=== PATIENT | female | born 1935 | race Caucasian/White ===

== ENCOUNTER 2017-11-04 11:27 | Emergency (ER) | payer MEDICARE ==
[~2017-11-04] VITALS: Ht 167.6 cm; Wt 127.9 kg
[~2017-11-04 11:27] MED LIST: CARVEDILOL25 MG PO; CO Q-10200 MG PO; FUROSEMIDE80 MG PO; LISINOPRIL40 MG PO; MULTI-VITAMIN1 EACH PO
[2017-11-04 12:20] LABS: BASOPHILS % 0.2 % (0.0-1.0); EOSINOPHILS # (AUTO) 0.2 (0.0-0.4); EOSINOPHILS % 1.9 % (0.0-6.0); HEMATOCRIT 29.2 % (34.2-44.1); HEMOGLOBIN 9.1 g/dL (12.0-16.0); LYMPHOCYTES # (AUTO) 1.6 (1.0-3.2); LYMPHOCYTES % 12.7 % (18.0-39.1); MEAN CORPUSCULAR HGB CONC 31.2 g/dL (31-35); MONOCYTES # (AUTO) 0.8 (0.2-0.8); MONOCYTES % 6.4 % (4.4-11.3); NEUTROPHILS # (AUTO) 9.6 (2.1-6.9); NEUTROPHILS % 77.8 % (38.7-80.0); PLATELET COUNT 240 x10e3/uL (140-360); RED BLOOD COUNT 3.14 x10e6/uL (3.6-5.1); RED CELL DISTRIBUTION WIDTH 15.9 % (11.7-14.4)
[2017-11-04 12:32] LABS: INR 1.15; PARTIAL THROMBOPLASTIN TIME 30.8 seconds (23.8-35.5); PROTHROMBIN TIME 13.8 seconds (11.9-14.5)
[2017-11-04 12:39] LABS: ALBUMIN 2.7 g/dL (3.5-5.0); ALBUMIN/GLOBULIN RATIO 0.6 (0.8-2.0); ANION GAP 9.7 mmol/L (8-16); CALCIUM 9.4 mg/dL (8.4-10.2); CREATININE, SERUM 0.91 mg/dL (0.57-1.11); POTASSIUM 4.7 mmol/L (3.5-5.1)
[2017-11-04] MEDS ORDERED: MORPHINE SULFATE 2 MG/ML SYR IV STA ×3 (12:46→14:55)
[2017-11-04] MEDS ORDERED: MORPHINE SULFATE 2 MG/ML SYR ONE (12:54)
[2017-11-04] MEDS ORDERED: MORPHINE SULFATE 2 MG/ML SYR IV SCH (13:00)
--- NOTE | 2017-11-04 13:41 | Diagnostic Imaging Report ---
PROCEDURE:SHOULDER LEFT COMPLETE TECHNIQUE:Portable AP left shoulder internal and external rotation. INDICATION:Left shoulder pain status post fall COMPARISON:None. FINDINGS: See conclusion. CONCLUSION: Anterior dislocation with suspected Hill-Sachs fracture. Fracture fragments at the posterolateral margin of the glenoid. Dictated by: Isaias Alvarez M.D. on 11/04/2017 at 13:41 Electronically approved by: Isaias Alvarez M.D. on 11/04/2017 at 13:41
--- NOTE | 2017-11-04 14:27 | Diagnostic Imaging Report ---
PROCEDURE:X-RAY LEFT SHOULDER, COMPLETE COMPARISON:[facility], DX, SHOULDER LEFT COMPLETE, 11/04/2017, 13:32. INDICATIONS:POST REDUCTION OF LEFT SHOULDER FINDINGS: See conclusion. CONCLUSION: Persistent subcoracoid location of the left humeral head, consistent with anterior glenohumeral dislocation. Multiple bone fragments again project lateral to the humeral head, consistent with Hill-Sachs fracture Micky Gibson M.D. Dictated by: Micky Gibson M.D. on 11/04/2017 at 14:28 Electronically approved by: Micky Gibson M.D. on 11/04/2017 at 14:28
--- NOTE | 2017-11-04 14:28 | Diagnostic Imaging Report ---
PROCEDURE:X-RAY LEFT HUMERUS, TWO OR MORE VIEWS COMPARISON:None. INDICATIONS:POST REDUCTION OF LEFT SHOULDER FINDINGS: See conclusion. CONCLUSION: No significant interval change in the subcoracoid location of the left humeral head consistent with glenohumeral dislocation. Bone fragments projecting lateral to the humeral neck consistent with Hill-Sachs fracture. Other bony structures are intact. Micky Gibson M.D. Dictated by: Micky Gibson M.D. on 11/04/2017 at 14:29 Electronically approved by: Micky Gibson M.D. on 11/04/2017 at 14:29
[2017-11-04] MEDS ORDERED: MORPHINE SULFATE 2 MG/ML SYR IV NR (16:30)
[2017-11-04] MEDS ORDERED: MORPHINE SULFATE 4 MG/ML SYR IV ONE (16:30)
--- NOTE | 2017-11-04 16:39 | Diagnostic Imaging Report ---
PROCEDURE:X-RAY LEFT SHOULDER, LIMITED COMPARISON:None. INDICATIONS:POST REDUCTION LEFT SHOULDER DISLOCATION FINDINGS: See conclusion. CONCLUSION: 1. Persistent left glenohumeral dislocation and Hill-Sachs fracture. Micky Gibson M.D. Dictated by: Micky Gibson M.D. on 11/04/2017 at 16:40 Electronically approved by: Micky Gibson M.D. on 11/04/2017 at 16:40
--- NOTE | 2017-11-04 17:12 | Diagnostic Imaging Report ---
PROCEDURE:X-RAY LEFT SHOULDER, LIMITED COMPARISON:None. INDICATIONS:2ND ATTEMPT POST REDUCTION LEFT SHOULDER FINDINGS: See conclusion. CONCLUSION: 1. Persistent subcoracoid location of the left humeral head consistent with glenohumeral dislocation, with unchanged Hill-Sachs fracture.. Micky Gibson M.D. Dictated by: Micky Gibson M.D. on 11/04/2017 at 17:12 Electronically approved by: Micky Gibson M.D. on 11/04/2017 at 17:12
--- NOTE | 2017-11-04 18:33 | Consultation ---
DATE OF CONSULTATION: November 04, 2017 CHIEF COMPLAINT: Left shoulder dislocation. HISTORY OF PRESENT ILLNESS: The patient is a medically frail 82-year-old lady who slipped and fell on the morning of November 01, 2017. She was taken by a friend to an urgent care place. She had x-rays taken of her shoulder, and was discharged on Naprosyn. They then called her a couple of days later and told her that she had a dislocation. She presented to her primary care doctor and was referred to the emergency room. Attempts were made to perform a closed reduction, but were unsuccessful. Orthopedic consultation was requested. PAST MEDICAL HISTORY: Advanced COPD. PREVIOUS SURGERIES: Include hysterectomy. MEDICATIONS: Include Integra, carvedilol, lisinopril, Lasix, prednisone, folic acid, and methotrexate. ALLERGIES: SHE DENIES ANY DRUG ALLERGIES. SOCIAL HISTORY: She lives alone. She is . PHYSICAL EXAMINATION GENERAL: She is awake, alert and oriented. She is in no distress. She is 5 feet 6 inches and weighs 282 pounds giving her a BMI of approximately 46. EXTREMITIES: Her left shoulder has some mild bruising that extends down to the elbow. The landmarks are obscured by the patient's body habitus. I cannot appreciate any obvious anterior fullness or sulcus. She has minimal discomfort with passive range of motion of the left shoulder. LABORATORY STUDIES: X-rays were reviewed, which show an anterior inferior perched dislocation with a greater tuberosity fracture. IMPRESSION: Subacute left shoulder dislocation. After informed consent and administration of IV morphine, multiple attempts were made to reduce the left shoulder. We could feel the shoulder subluxing in and out of the joint, but it quickly would re-dislocate. X-rays were taken which confirmed maintain persistent dislocation. The findings were discussed with the patient. This would require surgical stabilization. She has advanced chronic obstructive pulmonary disease and is morbidly obese. She can only walk about 20 feet without having to stop because she is short of breath. I explained that I felt the risks exceeded the benefits. We may be able to stabilize her shoulder and the joint, but she would still have severely limited range of motion. There is a high likelihood of having extensive tearing of the rotator cuff associated with this tear. The patient is right-hand dominant. She is not in any obvious distress as a result of this dislocation 3 days ago. After much discussion, she would prefer to treat this nonsurgically. This means that the shoulder will remain subluxed and dislocated. She states she understands. She will have limited motion whether we do surgery or not. The patient accepts this. I have given her my contact number to come and followup in the office. Job#: [id number] RI CRISTAL CISSE MD Job#: [id number] RI
== END 2017-11-04 17:58 | disposition home or self-care (01) ==
LOC: ER 11:27
DX: S42.292A Other displaced fracture of upper end of left humerus, initial encounter for closed fracture (principal); W01.0XXA Fall on same level from slipping, tripping and stumbling without subsequent striking against object, initial encounter; Z68.42 Body mass index [BMI] 45.0-49.9, adult; J44.9 Chronic obstructive pulmonary disease, unspecified; E66.01 Morbid (severe) obesity due to excess calories
CPT/HCPCS: 24500; 36415; 73020; 73030; 73060; 80053; 85025; 85610; 85730; 93005; 99284; J2270

== ENCOUNTER → 2018-01-18 | Outpatient (CLI) | payer MEDICARE ==
--- NOTE | 2018-01-18 11:38 | Diagnostic Imaging Report ---
PROCEDURE: CT CHEST WITHOUT CONTRAST CT scan of the chest WITHOUT intravenous contrast, using standard protocol. TECHNIQUE: The chest was scanned utilizing a multidetector helical scanner from the apex to the level of the adrenal glands. No IV contrast was administered. Coronal and sagittal multiplanar reformations were obtained. DLP: 473.14 mGy-cm COMPARISON: [facility], DX, HUMERUS LEFT 2+VIEWS, 11/04/2017, 14:15. INDICATIONS: SHORTNESS OF BREATH ON EXERTION FINDINGS: Lines/tubes: None. Lungs and Airways: Left lower lobe 3 mm nodule (series 3 image 77). The lungs and airways are normal with no focal abnormality demonstrated. Pleura: The pleural spaces are clear. Heart and mediastinum: Heterogeneous thyroid with multiple nodules, some of which are peripherally calcified. No significant mediastinal, hilar or axillary lymphadenopathy is seen. The heart and pericardium are within normal limits. Main pulmonary artery measures 2.8 cm in diameter, within normal limits. The ascending aorta measures 3.5 cm in diameter, within normal limits. Coronary artery, aortic, and mitral annular calcifications are present. Soft tissues: Hematoma surrounding the left humeral fracture and edema in the muscles of the left rotator cuff. Abdomen: Limited views of the upper abdomen show no abnormality within the visualized liver, spleen, pancreas, or kidneys. The adrenal glands are normal. Bones: Anteroinferior dislocation of the left humerus with Hill-Sachs fracture again noted. Convex curvature of the thoracic spine to the right. Degenerative changes of the spine. IMPRESSION: 1. No acute abnormalities. 2. Multiple thyroid nodules which can be further evaluated with thyroid ultrasound. 3. 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 Dictated by: Sal Berumen M.D. on 01/18/2018 at 11:41 Electronically approved by: Sal Berumen M.D. on 01/18/2018 at 11:41
== END ==
LOC: RESP 10:16
PROVIDERS: ATTEND Internal Medicine
DX: R06.09 Other forms of dyspnea (principal)
CPT/HCPCS: 71250; 94060; 94727; 94729

== ENCOUNTER → 2018-12-12 | Day surgery (SDC) | payer MEDICARE ==
[2018-12-11 11:29] LABS: BASOPHILS # (AUTO) 0.1 (0.0-0.1); BASOPHILS % 0.6 % (0.0-1.0); EOSINOPHILS # (AUTO) 0.4 (0.0-0.4); EOSINOPHILS % 3.6 % (0.0-6.0); HEMOGLOBIN 8.9 g/dL (12.0-16.0); LYMPHOCYTES # (AUTO) 1.7 (1.0-3.2); LYMPHOCYTES % 15.8 % (18.0-39.1); MEAN CORPUSCULAR HEMOGLOBIN 28.2 pg (28-32); MEAN CORPUSCULAR HGB CONC 29.7 g/dL (31-35); MEAN CORPUSCULAR VOLUME 94.9 fL (81-99); MONOCYTES # (AUTO) 0.9 (0.2-0.8); MONOCYTES % 7.9 % (4.4-11.3); NEUTROPHILS # (AUTO) 7.8 (2.1-6.9); NEUTROPHILS % 71.5 % (38.7-80.0); PLATELET COUNT 254 x10e3/uL (140-360); RED BLOOD COUNT 3.16 x10e6/uL (3.6-5.1); RED CELL DISTRIBUTION WIDTH 15.8 % (11.7-14.4)
--- NOTE | 2018-12-11 11:35 | Diagnostic Imaging Report ---
EXAMINATION: PA and lateral views of the chest. COMPARISON: None CLINICAL HISTORY: Preoperative exam for orthopedic procedure, left shoulder surgery DISCUSSION: Lines/tubes: None. Lungs: The lungs are well inflated and clear. There is no evidence of pneumonia or pulmonary edema. Pleura: There is no pleural effusion or pneumothorax. Heart and mediastinum: The cardiomediastinal silhouette is normal. Bones and soft tissues: No acute bony abnormalities. Chronic dislocation/deformity of the left humeral head and glenohumeral joint. Ddegenerative changes in the thoracic spine IMPRESSION: No acute cardiopulmonary abnormalities. Signed by: Dr. Calvin Steinberg M.D. on 12/11/2018 11:32 AM
[2018-12-11 11:46] LABS: ANION GAP 11.5 mmol/L (8-16); CALCIUM 9.3 mg/dL (8.4-10.2); CREATININE, SERUM 1.01 mg/dL (0.57-1.11); POTASSIUM 4.5 mmol/L (3.5-5.1)
[~2018-12-12] MED LIST changes: +CARVEDILOL12.5 MG PO; +CEFAZOLIN SOD 1 GM/NS 50ML 50 ML IV ONE; +FERROUS SULFAT325 M1 PO; +FOLIC ACID1 MG PO; +INTEGRA CAPSUL1 EACH PO; +LEVOCETIRIZINE D5 MG PO; +LIDOCAINE HCL 2% LOCAL INJ 5 ML SDV VIAL INJ ONE; +METHOTREXATE2.5 MG PO; +MONTELUKAST SOD10 MG PO; +ONDANSETRON HCL INJ 2MG/ML 2ML 2 MG/ML VIAL ONE; +PROPOFOL IV EMULSION 10 MG/ML 20 ML VIAL ONE; +VIT B12 PO
--- OUTSIDE RECORDS SUMMARY | 2018-12-12 08:18 | XMS REPORT ---
Author Author Barbra Masterson [facility] eClinicalWorks Address Unknown Phone Unavailable Care Team Providers Care Systems Integration Advisor Name Role Phone Barbra Masterson CP Unavailable Allergies, Adverse Reactions, Alerts Substance Reaction Event Type N.K.D.A. Info Not Available Non Drug Allergy Problems Problem Type Condition Code Onset Dates Condition Status Problem Long-term use of high-risk medication Z79.899 Active Problem Polyarthritis M13.0 Active Problem Rheumatoid arthritis M06.9 Active Assessment Rheumatoid arthritis M06.9 Active Assessment Long-term use of high-risk medication Z79.899 Active Medications Medication Code System Code Instructions Start Date End Date Status Dosage Lisinopril [facility] 87601322952 40 MG Orally Once a day Active 1 tablet Carvedilol ND 46512399986 25 MG Orally Twice a day Active as directed PredniSONE ND 72222055118 2.5 MG Orally Once a day Active 1 tablet Integra [facility] 76819268705 62.5-62.5-40-3 MG Orally Once a day Active 1 capsule Furosemide ND 58284754174 80 MG Orally Once a day Active 1 tablet Lorazepam ND 02481432169 1 MG Orally Once a day Active 1 tablet at bedtime as needed CoQ-10 [facility] 53640790053 200 MG Orally Once a day Active 1 capsule with a meal Folic Acid ND 10385230798 1 MG Orally Once a day Active 1 tablet Methotrexate NDC 0 2.5mg Orally Once a week Active 6 tablets Hydrocodone-Acetaminophen ND 65718472295 10-325 MG Orally every 6 hrs Active 1 tablet as needed Naproxen ND 76781804824 250 MG Orally Twice a day Active 1 tablet Tylenol/codeine #3 #30 NDC 0 300-30 mg orally every 4 hours prn pain Active one tablet Ibuprofen ND 14788662206 800 MG Orally Three times a day Active 1 tablet with food or milk Vital Signs Date/Time: Jun 09, 2017 BMI 46.59 Index Weight 280 lbs Height 65 in Temperature 99.0 F Cardiac Monitoring Heart Rate 80 /min Blood Pressure Diastolic 72 mm Hg Blood Pressure Systolic 124 mm Hg Results Name Result Date Reference Range Unit Abnormality Flag COMPREHENSIVE METABOLIC PANEL W/EGFR ----CALCIUM 9.2 37416665 8.6-10.4 mg/dL N ----CARBON DIOXIDE 31 04558870 20-31 mmol/L N ----ALT 8 49838847 6-29 U/L N ----CREATININE 0.96 50818159 0.60-0.88 mg/dL H ----AST 9 56443095 10-35 U/L L ----eGFR NON-AFR. TOGOLESE 55 45891504 > OR=60 mL/min/1.73m2 L ----ALKALINE PHOSPHATASE 41 20170609 33-130 U/L N ----eGFR 64 09925031 > OR=60 mL/min/1.73m2 N ----BILIRUBIN, TOTAL 0.2 32597174 0.2-1.2 mg/dL N ----BUN/CREATININE RATIO 21 47874686 6-22 (calc) N ----ALBUMIN/GLOBULIN RATIO 0.9 23814480 1.0-2.5 (calc) L ----SODIUM 140 36722979 135-146 mmol/L N ----GLOBULIN 3.3 37510485 1.9-3.7 g/dL (calc) N ----POTASSIUM 5.0 66920790 3.5-5.3 mmol/L N ----GLUCOSE 77 35629981 65-99 mg/dL N ----CHLORIDE 102 71461080 98-110 mmol/L N ----ALBUMIN 3.1 78564362 3.6-5.1 g/dL L ----UREA NITROGEN (BUN) 20 29448267 7-25 mg/dL N ----PROTEIN, TOTAL 6.4 39916182 6.1-8.1 g/dL N SED RATE BY MODIFIED WESTERGREN ----SED RATE BY MODIFIED WESTERGREN 72 42270543 < OR=30 mm/h H C-REACTIVE PROTEIN ----C-REACTIVE PROTEIN 15.0 91788323 <8.0 mg/L H CBC (INCLUDES DIFF/PLT) ----MCHC 32.1 82419650 32.0-36.0 g/dL N ----MCH 28.9 50168849 27.0-33.0 pg N ----PLATELET COUNT 284 77224878 140-400 Thousand/uL N ----RDW 14.2 63012666 11.0-15.0 % N ----BASOPHILS 0.4 18265967 % N ----ABSOLUTE NEUTROPHILS 8980 26385643 9756-0658 cells/uL H ----ABSOLUTE LYMPHOCYTES 1617 67891058 850-3900 cells/uL N ----MPV 10.2 65668049 7.5-12.5 fL N ----ABSOLUTE BASOPHILS 47 52069163 0-200 cells/uL N ----HEMATOCRIT 30.5 17509821 35.0-45.0 % L ----NEUTROPHILS 76.1 49965854 % N ----MCV 90.0 38085481 80.0-100.0 fL N ----RED BLOOD CELL COUNT 3.39 79673292 3.80-5.10 Million/uL L ----ABSOLUTE MONOCYTES 968 53275869 200-950 cells/uL H ----ABSOLUTE EOSINOPHILS 189 14071629 15-500 cells/uL N ----HEMOGLOBIN 9.8 66926334 11.7-15.5 g/dL L ----EOSINOPHILS 1.6 29576269 % N ----WHITE BLOOD CELL COUNT 11.8 45874696 3.8-10.8 Thousand/uL H ----LYMPHOCYTES 13.7 23699023 % N ----MONOCYTES 8.2 67105752 % N Summary Purpose eClinicalWorks Submission
--- OUTSIDE RECORDS SUMMARY | 2018-12-12 08:18 | XMS REPORT ---
Author Author Barbra Masterson [facility] eClinicalWorks Address Unknown Phone Unavailable Care Team Providers Care Subpoena Server Name Role Phone Barbra Masterson CP Unavailable Allergies, Adverse Reactions, Alerts Substance Reaction Event Type N.K.D.A. Info Not Available Non Drug Allergy Problems Problem Type Condition Code Onset Dates Condition Status Assessment Neuropathy G62.9 Active Problem Rheumatoid arthritis M06.9 Active Problem Long-term use of high-risk medication Z79.899 Active Problem Neuropathy G62.9 Active Assessment Rheumatoid arthritis M06.9 Active Assessment Long-term use of high-risk medication Z79.899 Active Problem Polyarthritis M13.0 Active Medications Medication Code System Code Instructions Start Date End Date Status Dosage Furosemide [facility] 00473910971 80 MG Orally Once a day Active 1 tablet Integra [facility] 57955163322 62.5-62.5-40-3 MG Orally Once a day Active 1 capsule Methotrexate ND 43023960652 2.5mg Orally Once a week February 01, 2019 Active 6 tablets Folic Acid [facility] 41050000268 1 Active TAKE 1 TABLET BY MOUTH EVERY DAY Lisinopril ND 47688918006 40 MG Orally Once a day Active 1 tablet CoQ-10 [facility] 80996782337 200 MG Orally Once a day Active 1 capsule with a meal Carvedilol [facility] 58684940721 25 MG Orally Twice a day Active as directed Folic Acid [facility] 87971429002 1 MG Orally Once a day Active 1 tablet Vital Signs Date/Time: November 03, 2018 BMI 42.11 Index Weight 268.9 lbs Height 67 in Temperature 98.7 F Cardiac Monitoring Heart Rate 68 /min Blood Pressure Diastolic 60 mm Hg Blood Pressure Systolic 144 mm Hg Results No Known Results Summary Purpose eClinicalWorks Submission
--- OUTSIDE RECORDS SUMMARY | 2018-12-12 08:18 | XMS REPORT ---
Author Author Barbra Masterson [facility] eClinicalWorks Address Unknown Phone Unavailable Care Team Providers Care Account Executive Sales Representative Name Role Phone Barbra Masterson CP Unavailable Allergies No Known Allergies Problems Problem Type Condition Code Onset Dates Condition Status Problem Long-term use of high-risk medication Z79.899 Active Problem Polyarthritis M13.0 Active Problem Rheumatoid arthritis M06.9 Active Medications Medication Code System Code Instructions Start Date End Date Status Dosage Methotrexate NDC 0 2.5mg Orally Once a week November 22, 2017 Active 6 tablets Results No Known Results Summary Purpose eClinicalWorks Submission
--- OUTSIDE RECORDS SUMMARY | 2018-12-12 08:18 | XMS REPORT | Continuity of Care Document ---
Author Author [facility] Address Unknown Phone Unavailable Problems Problem Status Onset Date Classification Date Reported Comments Source 729.5 - PAIN IN LIMB Active 01/05/2012 [facility] [place] Long-term use of high-risk medication Active Problem 11/07/2018 Marc Birch Polyarthritis Active Problem 11/07/2018 Marc Birch Rheumatoid arthritis Active Problem 11/07/2018 Marc Birch Neuropathy Active Diagnosis 11/07/2018 Marc Birch Medications Medication Details Route Status Patient Instructions Ordering Provider Order Date Source Methotrexate 6 tablets Orally Active 2.5mg Orally Once a week [place] 02/01/2019 Marc Birch Methotrexate 6 tablets Orally Active 2.5mg Orally Once a week [place] 11/22/2017 Marc Birch Lisinopril 1 tablet Orally Active 40 MG Orally Once a day [place] Marc Birch Carvedilol as directed Orally Active 25 MG Orally Twice a day [place] Marc Birch PredniSONE 1 tablet Orally Active 2.5 MG Orally QOD [place] Marc Birch Integra 1 capsule Orally Active 62.5-62.5-40-3 MG Orally Once a day [place] Marc Birch Furosemide 1 tablet Orally Active 80 MG Orally Once a day [place] Marc Birch Lorazepam 1 tablet at bedtime as needed Orally Active 1 MG Orally Once a day [place] Marc Birch CoQ-10 1 capsule with a meal Orally Active 200 MG Orally Once a day [place] Marc Birch Folic Acid 1 tablet Orally Active 1 MG Orally Once a day [place] Marc Birch Methotrexate 6 tablets Orally Active 2.5mg Orally Once a week [place] Marc Birch Hydrocodone-Acetaminophen 1 tablet as needed Orally Active 10- 325 MG Orally every 6 hrs [place] Marc Birch Naproxen 1 tablet Orally Active 250 MG Orally Twice a day [place] Marc Birch Tylenol/codeine #3 #30 one tablet orally Active 300-30 mg orally every 4 hours prn pain [place] Marc Birch Ibuprofen 1 tablet with food or milk Orally Active 800 MG Orally Three times a day [place] Marc Birch Folic Acid TAKE 1 TABLET BY MOUTH EVERY DAY NA Active 1 [place] Marc Birch Carvedilol 25 Mg Tablet Twice A Day Active [facility] Furosemide 80 Mg Tablet Daily Active [facility] Lisinopril 40 Mg Tablet Daily Active [facility] Multivitamin (Multi-Vitamin Daily) 1 Each Tablet Daily Active [facility] Ubidecarenone (Co Q-10) 200 Mg Capsule Daily Active [facility] Allergies, Adverse Reactions, Alerts Substance Category Reaction Severity Reaction type Status Date Reported Comments Source N.K.D.A. Adverse Reaction Info Not Available Adverse Reaction Active 11/03/2018 Marc Birch Immunizations Immunization Date Given Site Status Last Updated Comments Source Results Order Name Results Value Reference Range Date Interpretation Comments Source Activated partial thromboplastin time (aPTT) in platelet poor plasma bycoagulation assay Activated partial thromboplastin time (aPTT) in platelet poor plasma bycoagulation assay 30.8 23.8 - 35.5 11/04/2017 [facility] Automated blood basophil count (count/volume) Automated blood basophil count (count/volume) 0.0 0.0 - 0.1 11/04/2017 [facility] Automated blood basophil count as percentage of total leukocytes Automated blood basophil count as percentage of total leukocytes 0.2 0.0 - 1.0 11/04/2017 [facility] Automated blood eosinophil count Automated blood eosinophil count 0.2 0.0 - 0.4 11/04/2017 [facility] Automated blood eosinophil count as percentage of total leukocytes Automated blood eosinophil count as percentage of total leukocytes 1.9 0.0 - 6.0 11/04/2017 [facility] Automated blood hematocrit (volume fraction) Automated blood hematocrit (volume fraction) 29.2 34.2 - 44.1 11/04/2017 [facility] Automated blood lymphocyte count as percentage ot total leukocytes Automated blood lymphocyte count as percentage ot total leukocytes 12.7 18.0 - 39.1 11/04/2017 [facility] Automated blood monocyte count as percentage of total leukocytes Automated blood monocyte count as percentage of total leukocytes 6.4 4.4 - 11.3 11/04/2017 [facility] Automated blood neutrophil count Automated blood neutrophil count 9.6 2.1 - 6.9 11/04/2017 [facility] Automated blood platelet count (count/volume) Automated blood platelet count (count/volume) 240 140 - 360 11/04/2017 [facility] Automated blood segmented neutrophil count as percentage of total leukocytes Automated blood segmented neutrophil count as percentage of total leukocytes 77.8 38.7 - 80.0 11/04/2017 [facility] Automated erythrocyte mean corpuscular hemoglobin (mass per erythrocyte) Automated erythrocyte mean corpuscular hemoglobin (mass per erythrocyte) 29.0 28 - 32 11/04/2017 [facility] Automated erythrocyte mean corpuscular hemoglobin concentration measurement (mass/volume) Automated erythrocyte mean corpuscular hemoglobin concentration measurement (mass/volume) 31.2 31 - 35 11/04/2017 [facility] Automated erythrocyte mean corpuscular volume Automated erythrocyte mean corpuscular volume 93.0 81 - 99 11/04/2017 [facility] Blood erythrocytes automated count (number/volume) Blood erythrocytes automated count (number/volume) 3.14 3.6 - 5.1 11/04/2017 [facility] Blood hemoglobin measurement (moles/volume) Blood hemoglobin measurement (moles/volume) 9.1 12.0 - 16.0 11/04/2017 [facility] Blood leukocytes automated count (number/volume) Blood leukocytes automated count (number/volume) 12.31 4.8 - 10.8 11/04/2017 [facility] Blood lymphocytes count (number/volume) Blood lymphocytes count (number/volume) 1.6 1.0 - 3.2 11/04/2017 [facility] Blood monocytes automated count (number/volume) Blood monocytes automated count (number/volume) 0.8 0.2 - 0.8 11/04/2017 [facility] Estimated glomerular filtration rate (GFR) determination Estimated glomerular filtration rate (GFR) determination 59 60 11/04/2017 [facility] Glucose measurement Glucose measurement 97 74 - 118 11/04/2017 [facility] INR in Platelet poor plasma by Coagulation assay INR in Platelet poor plasma by Coagulation assay 1.15 11/04/2017 [facility] Plasma globulin measurement (mass/volume) Plasma globulin measurement (mass/volume) 4.3 2.3 - 3.5 11/04/2017 [facility] Prothrombin time (PT) in platelet poor plasma by coagulation assay Prothrombin time (PT) in platelet poor plasma by coagulation assay 13.8 11.9 - 14.5 11/04/2017 [facility] Serum or plasma alanine aminotransferase measurement (enzymatic activity/volume) Serum or plasma alanine aminotransferase measurement (enzymatic activity/volume) 22 0 - 55 11/04/2017 [facility] Serum or plasma albumin measurement (mass/volume) Serum or plasma albumin measurement (mass/volume) 2.7 3.5 - 5.0 11/04/2017 [facility] Serum or plasma albumin/globulin mass ratio Serum or plasma albumin/globulin mass ratio 0.6 0.8 - 2.0 11/04/2017 [facility] Serum or plasma alkaline phosphatase measurement (enzymatic activity/volume) Serum or plasma alkaline phosphatase measurement (enzymatic activity/volume) 54 40 - 150 11/04/2017 [facility] Serum or plasma anion gap Serum or plasma anion gap 9.7 8 - 16 11/04/2017 [facility] Serum or plasma calcium measurement (mass/volume) Serum or plasma calcium measurement (mass/volume) 9.4 8.4 - 10.2 11/04/2017 [facility] Serum or plasma carbon dioxide, total measurement (moles/volume) Serum or plasma carbon dioxide, total measurement (moles/volume) 31 22 - 29 11/04/2017 [facility] Serum or plasma chloride measurement (moles/volume) Serum or plasma chloride measurement (moles/volume) 103 98 - 107 11/04/2017 [facility] Serum or plasma creatinine measurement (mass/volume) Serum or plasma creatinine measurement (mass/volume) 0.91 0.57 - 1.11 11/04/2017 [facility] Serum or plasma potassium measurement (moles/volume) Serum or plasma potassium measurement (moles/volume) 4.7 3.5 - 5.1 11/04/2017 [facility] Serum or plasma protein measurement (mass/volume) Serum or plasma protein measurement (mass/volume) 7.0 6.5 - 8.1 11/04/2017 [facility] Serum or plasma sodium measurement (moles/volume) Serum or plasma sodium measurement (moles/volume) 139 136 - 145 11/04/2017 [facility] Serum or plasma total bilirubin measurement (mass/volume) Serum or plasma total bilirubin measurement (mass/volume) 0.5 0.2 - 1.2 11/04/2017 [facility] Serum or plasma urea nitrogen measurement (mass/volume) Serum or plasma urea nitrogen measurement (mass/volume) 21 7 - 26 11/04/2017 [facility] Serum or plasma urea nitrogen/creatinine mass ratio Serum or plasma urea nitrogen/creatinine mass ratio 23 6 - 25 11/04/2017 [facility] Red Cell Distribution Width 15.9 11.7 - 14.4 11/04/2017 [facility] IM GRANULOCYTES % 1.0 0.0 - 1.0 11/04/2017 [facility] Absolute Immature Granulocyte (auto 0.12 0 - 0.1 11/04/2017 [facility] Aspartate Amino Transf (AST/SGOT) 18 5 - 34 11/04/2017 [facility] Vital Signs Vital Sign Value Date Comments Source Weight 268.9 11/03/2018 Marc Birch Height 67 11/03/2018 Marc Birch Temperature Oral (F) 98.7 F 11/03/2018 Marc Birch Heart Rate 68 11/03/2018 Marc Birch Diastolic (mm Hg) 60 11/03/2018 Marc Birch Systolic (mm Hg) 144 11/03/2018 Marc Birch Weight 274.7 07/06/2018 Marc Birch Height 67 07/06/2018 Marc Birch Temperature Oral (F) 98.1 F 07/06/2018 Marc Birch Heart Rate 70 07/06/2018 Marc Birch Diastolic (mm Hg) 62 07/06/2018 Marc Birch Systolic (mm Hg) 130 07/06/2018 Marc Birch Weight 173 04/06/2018 Marc Birch Height 66 04/06/2018 Marc Birch Temperature Oral (F) 97.9 F 04/06/2018 Marc Birch Heart Rate 72 04/06/2018 Marc Birch Diastolic (mm Hg) 68 04/06/2018 Marc Birch Systolic (mm Hg) 130 04/06/2018 Marc Birch Weight 266 12/15/2017 Marc Birch Height 66 12/15/2017 Marc Birch Temperature Oral (F) 98.1 F 12/15/2017 Marc Birch Heart Rate 82 12/15/2017 Marc Birch Diastolic (mm Hg) 78 12/15/2017 Marc Birch Systolic (mm Hg) 146 12/15/2017 Marc Birch Weight 282.2 09/08/2017 Marc Birch Height 66 09/08/2017 Marc Birch Temperature Oral (F) 97.1 F 09/08/2017 Marc Birch Heart Rate 88 09/08/2017 Marc Birch Diastolic (mm Hg) 70 09/08/2017 Marc Birch Systolic (mm Hg) 108 09/08/2017 Marc Birch Weight 280 06/09/2017 Marc Birch Height 65 06/09/2017 Marc Birch Temperature Oral (F) 99.0 F 06/09/2017 Marc Birch Heart Rate 80 06/09/2017 Marc Birch Diastolic (mm Hg) 72 06/09/2017 Marc Birch Systolic (mm Hg) 124 06/09/2017 Marc Birch Encounters Location Location Details Encounter Type Encounter Number Reason For Visit Attending Provider ADM Date DC Date Status Source OD [id number] 729.5 - PAIN IN LIMB JEANA MOCK 01/06/2012 01/06/2012 Active [facility] KEO Mcginnis Departed Emergency Room [id number] ROBIN CORDOBA MD 11/04/2017 11/04/2017 [facility] Procedures Procedure Code Date Perfomer Comments Source
--- OUTSIDE RECORDS SUMMARY | 2018-12-12 08:18 | XMS REPORT ---
Author Author Barbra Masterson [facility] eClinicalWorks Address Unknown Phone Unavailable Care Team Providers Care Sand Mixer Name Role Phone Barbra Masterson Unavailable Allergies, Adverse Reactions, Alerts Substance Reaction [...] Start Date End Date Status Dosage Lisinopril [facility] 17904644947 40 MG Orally Once a day Active 1 tablet Furosemide [facility] 28835121182 80 MG Orally Once a day Active 1 tablet Methotrexate NDC 0 2.5mg Orally Once a week November 22, 2017 Active 6 tablets Folic Acid [facility] 22761166280 1 MG Orally Once a day Active 1 tablet Carvedilol [facility] 32356788118 25 MG Orally Twice a day Active as directed Integra [facility] 89294063387 62.5-62.5-40-3 MG Orally Once a day Active 1 capsule CoQ-10 [facility] 59366100610 200 MG Orally Once a day Active 1 capsule with a meal PredniSONE [facility] 37444466454 2.5 MG Orally Once a day Active 1 tablet Vital Signs Date/Time: December 15, 2017 BMI 42.93 Index Weight 266 lbs Height 66 in Temperature 98.1 F Cardiac Monitoring Heart Rate 82 /min Blood Pressure Diastolic 78 mm Hg Blood Pressure Systolic 146 mm Hg Results Name Result Date Reference Range Unit Abnormality Flag COMPREHENSIVE METABOLIC PANEL W/EGFR ----CALCIUM 9.1 20171215 8.6-10.4 mg/dL N ----CARBON DIOXIDE 30 20171215 20-31 mmol/L N ----ALT 10 30709619 6-29 U/L N ----CREATININE 1.00 20171215 0.60-0.88 mg/dL H ----AST 13 20171215 10-35 U/L N ----eGFR NON-AFR. MALAGASY 52 20171215 > OR=60 mL/min/1.73m2 L ----ALKALINE PHOSPHATASE 51 20171215 33-130 U/L N ----eGFR 61 20171215 > OR=60 mL/min/1.73m2 N ----BILIRUBIN, TOTAL 0.3 20171215 0.2-1.2 mg/dL N ----BUN/CREATININE RATIO 22 20171215 6-22 (calc) N ----ALBUMIN/GLOBULIN RATIO 1.0 20171215 1.0-2.5 (calc) N ----SODIUM 139 20171215 135-146 mmol/L N ----GLOBULIN 3.2 20171215 1.9-3.7 g/dL (calc) N ----POTASSIUM 4.4 20171215 3.5-5.3 mmol/L N ----GLUCOSE 113 20171215 65-99 mg/dL H ----CHLORIDE 103 20171215 98-110 mmol/L N ----ALBUMIN 3.2 20171215 3.6-5.1 g/dL L ----UREA NITROGEN (BUN) 22 20171215 7-25 mg/dL N ----PROTEIN, TOTAL 6.4 20171215 6.1-8.1 g/dL N SED RATE BY MODIFIED WESTERGREN ----SED RATE BY MODIFIED WESTERGREN 36 20171215 < OR=30 mm/h H C-REACTIVE PROTEIN ----C-REACTIVE PROTEIN 13.0 20171215 <8.0 mg/L H CBC (INCLUDES DIFF/PLT) ----MCHC 31.9 20171215 32.0-36.0 g/dL L ----MCH 29.3 20171215 27.0-33.0 pg N ----PLATELET COUNT 279 20171215 140-400 Thousand/uL N ----RDW 15.5 20171215 11.0-15.0 % H ----BASOPHILS 0.6 20171215 % N ----ABSOLUTE NEUTROPHILS 6132 [id number] 2304-3345 cells/uL N ----ABSOLUTE LYMPHOCYTES 1453 13484746 850-3900 cells/uL N ----MPV 9.8 65940028 7.5-12.5 fL N ----ABSOLUTE BASOPHILS 52 35997110 0-200 cells/uL N ----HEMATOCRIT 29.8 53565986 35.0-45.0 % L ----NEUTROPHILS 71.3 20171215 % N ----MCV 92.0 55996565 80.0-100.0 fL N ----RED BLOOD CELL COUNT 3.24 98940205 3.80-5.10 Million/uL L ----ABSOLUTE MONOCYTES 679 20171215 200-950 cells/uL N ----ABSOLUTE EOSINOPHILS 284 43679298 15-500 cells/uL N ----HEMOGLOBIN 9.5 60124642 11.7-15.5 g/dL L ----EOSINOPHILS 3.3 02668386 % N ----WHITE BLOOD CELL COUNT 8.6 31960895 3.8-10.8 Thousand/uL N ----LYMPHOCYTES 16.9 46434672 % N ----MONOCYTES 7.9 53023319 % N Summary Purpose eClinicalWorks Submission
--- OUTSIDE RECORDS SUMMARY | 2018-12-12 08:18 | XMS REPORT ---
Author Author Barbra Masterson [facility] eClinicalWorks Address Unknown Phone Unavailable Care Team Providers Care Truck Cleaner Name Role Phone Barbra Masterson CP Unavailable [...] Instructions Start Date End Date Status Dosage Integra [facility] 85402394563 62.5-62.5-40-3 MG Orally Once a day Active 1 capsule Carvedilol ND 85962635935 25 MG Orally Twice a day Active as directed Furosemide ND 94789769393 80 MG Orally Once a day Active 1 tablet Folic Acid ND 44459697558 1 MG Orally Once a day Active 1 tablet CoQ-10 ND 27019556919 200 MG Orally Once a day Active 1 capsule with a meal Methotrexate NDC 0 2.5mg Orally Once a week Active 6 tablets Lisinopril ND 24023975713 40 MG Orally Once a day Active 1 tablet Vital Signs Date/Time: Sep 08, 2017 BMI 45.54 Index Weight 282.2 lbs Height 66 in Temperature 97.1 F Cardiac Monitoring Heart Rate 88 /min Blood Pressure Diastolic 70 mm Hg Blood Pressure Systolic 108 mm Hg Results No Known Results Summary Purpose eClinicalWorks Submission
--- OUTSIDE RECORDS SUMMARY | 2018-12-12 08:19 | XMS REPORT ---
Author Author Barbra Masterson [facility] eClinicalWorks Address Unknown Phone Unavailable Care Team Providers Care Drop Pit Worker Name Role Phone Barbra Masterson CP Unavailable Allergies, Adverse Reactions, Alerts Substance Reaction Event Type N.K.D.A. Info Not Available Non Drug Allergy Problems Problem Type Condition Code Onset Dates Condition Status Problem Long-term use of high-risk medication Z79.899 Active Problem Polyarthritis M13.0 Active Problem Rheumatoid arthritis M06.9 Active Assessment Long-term use of high-risk medication Z79.899 Active Assessment Rheumatoid arthritis M06.9 Active Medications Medication Code System Code Instructions Start Date End Date Status Dosage CoQ-10 [facility] 40392393830 200 MG Orally Once a day Active 1 capsule with a meal Integra [facility] 30067209550 62.5-62.5-40-3 MG Orally Once a day Active 1 capsule Lisinopril [facility] 44538169851 40 MG Orally Once a day Active 1 tablet PredniSONE ND 51294140808 2.5 MG Orally QOD Active 1 tablet Folic Acid ND 58371934886 1 MG Orally Once a day Active 1 tablet Methotrexate NDC 0 2.5mg Orally Once a week Active 6 tablets Carvedilol [facility] 87437378812 25 MG Orally Twice a day Active as directed Furosemide [facility] 27552523539 80 MG Orally Once a day Active 1 tablet Vital Signs Date/Time: Jul 06, 2018 BMI 43.02 Index Weight 274.7 lbs Height 67 in Temperature 98.1 F Cardiac Monitoring Heart Rate 70 /min Blood Pressure Diastolic 62 mm Hg Blood Pressure Systolic 130 mm Hg Results No Known Results Summary Purpose eClinicalWorks Submission
--- OUTSIDE RECORDS SUMMARY | 2018-12-12 08:19 | XMS REPORT ---
Author Author Barbra Masterson [facility] eClinicalWorks Address Unknown Phone Unavailable Care Team Providers Care Cable Television Technician Name Role Phone Barbra Masterson Unavailable Allergies, [...] Start Date End Date Status Dosage Integra [facility] 25747837791 62.5-62.5-40-3 MG Orally Once a day Active 1 capsule CoQ-10 [facility] 21344070152 200 MG Orally Once a day Active 1 capsule with a meal Methotrexate NDC 0 2.5mg Orally Once a week Active 6 tablets Folic Acid [facility] 01149875730 1 MG Orally Once a day Active 1 tablet Lisinopril ND 37201076506 40 MG Orally Once a day Active 1 tablet Furosemide ND 46976190113 80 MG Orally Once a day Active 1 tablet Carvedilol [facility] 56601037593 25 MG Orally Twice a day Active as directed PredniSONE [facility] 36739673283 2.5 MG Orally QOD Active 1 tablet Vital Signs Date/Time: Apr 06, 2018 BMI 27.92 Index Weight 173 lbs Height 66 in Temperature 97.9 F Cardiac Monitoring Heart Rate 72 /min Blood Pressure Diastolic 68 mm Hg Blood Pressure Systolic 130 mm Hg Results Name Result Date Reference Range Unit Abnormality Flag COMPREHENSIVE METABOLIC PANEL W/EGFR ----CALCIUM 9.1 20180406 8.6-10.4 mg/dL N ----CARBON DIOXIDE 33 20180406 20-32 mmol/L H ----ALT 7 20180406 6-29 U/L N ----CREATININE 0.98 20180406 0.60-0.88 mg/dL H ----AST 11 20180406 10-35 U/L N ----eGFR NON-AFR. CYMRO 54 20180406 > OR=60 mL/min/1.73m2 L ----ALKALINE PHOSPHATASE 45 20180406 33-130 U/L N ----eGFR 62 20180406 > OR=60 mL/min/1.73m2 N ----BILIRUBIN, TOTAL 0.4 20180406 0.2-1.2 mg/dL N ----BUN/CREATININE RATIO 27 20180406 6-22 (calc) H ----ALBUMIN/GLOBULIN RATIO 1.0 20180406 1.0-2.5 (calc) N ----SODIUM 143 20180406 135-146 mmol/L N ----GLOBULIN 3.4 20180406 1.9-3.7 g/dL (calc) N ----POTASSIUM 4.7 20180406 3.5-5.3 mmol/L N ----GLUCOSE 110 20180406 65-99 mg/dL H ----CHLORIDE 101 20180406 98-110 mmol/L N ----ALBUMIN 3.3 13252054 3.6-5.1 g/dL L ----UREA NITROGEN (BUN) 26 20180406 7-25 mg/dL H ----PROTEIN, TOTAL 6.7 20180406 6.1-8.1 g/dL N SED RATE BY MODIFIED WESTERGREN ----SED RATE BY MODIFIED WESTERGREN 65 20180406 < OR=30 mm/h H C-REACTIVE PROTEIN ----C-REACTIVE PROTEIN 16.1 59090205 <8.0 mg/L H CBC (INCLUDES DIFF/PLT) ----MCHC 31.3 20180406 32.0-36.0 g/dL L ----MCH 29.0 20180406 27.0-33.0 pg N ----PLATELET COUNT 285 20180406 140-400 Thousand/uL N ----RDW 14.6 20180406 11.0-15.0 % N ----BASOPHILS 0.5 20180406 % N ----ABSOLUTE NEUTROPHILS 6817 20180406 1857-2385 cells/uL N ----ABSOLUTE LYMPHOCYTES 1451 78526580 850-3900 cells/uL N ----MPV 10.1 37132383 7.5-12.5 fL N ----ABSOLUTE BASOPHILS 47 59181498 0-200 cells/uL N ----HEMATOCRIT 31.0 89466394 35.0-45.0 % L ----NEUTROPHILS 73.3 97476712 % N ----MCV 92.8 19502080 80.0-100.0 fL N ----RED BLOOD CELL COUNT 3.34 43634783 3.80-5.10 Million/uL L ----ABSOLUTE MONOCYTES 725 47926932 200-950 cells/uL N ----ABSOLUTE EOSINOPHILS 260 31843608 15-500 cells/uL N ----HEMOGLOBIN 9.7 82806535 11.7-15.5 g/dL L ----EOSINOPHILS 2.8 69661608 % N ----WHITE BLOOD CELL COUNT 9.3 77923310 3.8-10.8 Thousand/uL N ----LYMPHOCYTES 15.6 37881599 % N ----MONOCYTES 7.8 64246222 % N Summary Purpose eClinicalWorks Submission
--- OUTSIDE RECORDS SUMMARY | 2018-12-12 08:19 | XMS REPORT ---
Author Author [facility] Address Unknown Phone Unavailable Care Team Providers Care Multi Operation Forming Machine Setter Name Role Phone UNKNOWN, REFFERING PP Unavailable CRISTAL CISSE Unavailable Unavailable SHILOH MORGAN Unavailable Unavailable ROBIN CORDOBA Unavailable Unavailable Kenji MCCOY Unavailable Unavailable Problems This patient has no known problems. Allergies, Adverse Reactions, Alerts This patient has no known allergies or adverse reactions. Medications This patient has no known medications. Encounters Start Date/Time End Date/Time Encounter Type Admission Type Attending Clinicians Care Facility Care Department Encounter ID 2017-06-28 15:15:00 2017-06-28 15:15:00 Emergency E [facility] MED [id number] Results Test Description Test Time Test Comments Text Results Atomic Results Result Comments CHEST 2 VIEWS 2018-12-11 11:29:00 [place] [address] Patient Name: ANTHONY GREGORY MR #: [id number] : 1935 Age/Sex: 83/F Req #: [id number] Adm Physician: Ordered by: CRISTAL CISSE MD Report #: [id number] Location: OR Room/Bed: Procedure: [id number] DX/CHEST 2 VIEWS Exam Date: 12/11/18 Exam Time: 1045 REPORT STATUS: Signed EXAMINATION: PA and lateral views of the chest. COMPARISON: None CLINICAL HISTORY: Preoperative exam for orthopedic procedure, left shoulder surgery DISCUSSION: Lines/tubes: None. Lungs: The lungs are well inflated and clear. There is no evidence of pneumonia or pulmonary edema. Pleura: There is no pleural effusion or pneumothorax. Heart and mediastinum: The cardiomediastinal silhouette is normal. Bones and soft tissues: No acute bony abnormalities. Chronic dislocation/deformity of the left humeral head and glenohumeral joint. Ddegenerative changes in the thoracic spine IMPRESSION: No acute cardiopulmonary abnormalities. Signed by: Dr. Cristal Davis M.D. on 12/11/2018 11:32 AM Dictated By: CRISTAL DAVIS MD 113 Transcribed By: MINDI on 12/11/18 113 COPY TO: CRISTAL CISSE MD CT CHEST WO 2018-01-18 11:41:00 [place] [address] Patient Name: ANTHONY GREGORY MR #: [id number] : 1935 Age/Sex: 82/F Acct #: [id number] Req #: [id number] Adm Physician: Ordered by: SHILOH MORGAN MD Report #: [id number] Location: [facility] Room/Bed: Procedure: [id number] CT/CT CHEST WO Exam Date: 01/18/18 Exam Time: 1100 REPORT STATUS: Signed PROCEDURE: CT CHEST WITHOUT CONTRAST CT scan of the chest WITHOUT intravenous contrast, using standard protocol. TECHNIQUE: The chest was scanned utilizing a multidetector helical scanner from the apex to the level of the adrenal glands. No IV contrast was administered. Coronal and sagittal multiplanar reformations were obtained. DLP: 473.14 mGy-cm COMPARISON: [facility], DX, HUMERUS LEFT 2+VIEWS, 11/04/2017, 14:15. INDICATIONS: SHORTNESS OF BREATH ON EXERTION FINDINGS: Lines/tubes: None. Lungs and Airways: Left lower lobe 3 mm nodule (series 3 image 77). The lungs and airways are normal with no focal abnormality demonstrated. Pleura: The pleural spaces are clear. Heart and mediastinum: Heterogeneous thyroid with multiple nodules, some of which are peripherally calcified. No significant mediastinal, hilar or axillary lymphadenopathy is seen. The heart and pericardium are within normal limits. Main pulmonary artery measures 2.8 cm in diameter, within normal limits. The ascending aorta measures 3.5 cm in diameter, within normal limits. Coronary artery, aortic, and mitral annular calcifications are present. Soft tissues: Hematoma surrounding the left humeral fracture and edema in the muscles of the left rotator cuff. Abdomen: Limited views of the upper abdomen show no abnormality within the visualized liver, spleen, pancreas, or kidneys. The adrenal glands are normal. Bones: Anteroinferior dislocation of the left humerus with Hill-Sachs fracture again noted. Convex curvature of the thoracic spine to the right. Degenerative changes of the spine. IMPRESSION: 1. No acute abnormalities. 2. Multiple thyroid nodules which can be further evaluated with thyroid ultrasound. 3. 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 Dictated by: Sal Dumont M.D. on 01/18/2018 at 11:41 Electronically approved by: Sal Dumont M.D. on 01/18/2018 at 11:41 Dictated By: SAL DUMONT MD 1141 Transcribed By: JESSE on 01/18/18 1141 COPY TO: SHILOH MORGAN MD US PELVIC COMPLETE 2017-06-28 22:33:30 US PELVIC COMPLETELocation:[facility]4Jqrtu hours services provided 06/28/2017 10:33 PMIndication:vaginal bleedComparison:None availableTechnique: Transabdominal sonographic prasad scale, color and Dopplerimaging was performed to the female pelvis.Findings:Patient is status post hysterectomy and unilateraloophorectomy. The ovaries are not visualized. No abnormal fluidcollections or masses are noted.Impression: No acute abnormality. US DUPLX EXT VEIN COMPRS, UNI-RIGHT 2017-06-28 22:26:56 US DUPLX EXT VEIN COMPRS, UNI-RIGHTLocation:W4Bilsp hours services provided 06/28/2017 10:26 PMIndication:PainComparison:None availableTechnique: High frequency linear transducer sonography including grayscale, color Doppler imaging was performed through the right lowerextremity deep veins.Findings:Interrogated deep veins demonstrate normal compressibility,respiratory phasicity and blood flow with no evidence of DVT.Impression: No evidence of DVT right lower extremity. Comprehensive Metabolic Panel 2017-06-28 21:11:00 Sodium (test code=NA) 139 mmol/L 135-145 Potassium (test code=K) 4.9 mmol/L 3.5-5.1 Chloride (test code=CL) 100 mmol/L 98-105 Carbon Dioxide (test code=CO2) 30 mmol/L 22-29 Glucose (test code=GLU) 103 mg/dL 70-115 Blood Urea Nitrogen (test code=BUN) 22 mg/dL 8-23 Creatinine (test code=CREAT) 0.9 mg/dL 0.5-0.9 Calcium (test code=CA) 9.2 mg/dL 8.3-10.5 Prot Total (test code=TP) 6.5 g/dL 6.4-8.3 Albumin (test code=ALB) 3.4 g/dL 3.5-5.2 A/G Ratio (test code=AGRATIO) 1.1 Ratio Globulin (test code=GLOB) 3.1 2.9-3.1 Bili Total (test code=TBIL) 0.3 mg/dL 0.1-0.9 Alk Phos (test code=APHOS) 44 U/L 35-104 AST (test code=AST) 15 U/L 1-32 ALT (test code=ALT) 11 U/L 1-33 BUN/Creatinine Ratio (test code=BCRATIO) 24.4 Anion Gap (test code=AGAP) 9 mmol/L 7-16 Estimated GFR (test code=GFR) >60 mL/min/1.73m2 eGFR (estimated Glomerular Filtration Rate) is an estimated value,calculated from the patient's serum creatinine using the MDRD equation.It is NOT the patient's actual GFR. The eGFR provides a more clinicallyuseful measure of kidney disease than serum creatinine alone.This calculation takes sex and race into account, if the informationis provided. If the race is not provided, and the patient isAfrican-Guinean, multiply by 1.212. If sex is not provided, and thepatient is female, multiply by 0.742. Results for patients <18 years ofage have not been validated by the MDRD study and should be interpretedwith caution.eGFR Result Interpretation:eGFR > or=60 is in the Normal RangeeGFR < 60 may mean kidney diseaseeGFR < 15 may mean kidney failureRanges recommended by the National Kidney Foundat ion,http://nkdep.nih.gov Urinalysis Zoyresyu3905-09-23 21:09:00* Test Item Value Reference Range Comments Color (test code=COLOR) Yellow Yellow,Straw,Pl yellow Clarity (test code=CLAR) Clear Clear Specific [place] (test code=SPGR) 1.017 1.001-1.035 pH (test code=PH) 5.0 5.0-9.0 Ketone (test code=KET) Negative mg/dL Negative Glucose (test code=GLUCUR) Negative mg/dL Negative Protein (test code=PROT) 25 mg/dL Negative Bilirubin (test code=BILI) Negative mg/dL Negative Occult Blood (test code=UDOB) Moderate Negative Urobilinogen (test code=UROB) 0.2 mg/dL 0.2-1.0 Nitrite (test code=NIT) Negative Negative Leuk Esterase (test code=LEUK) Moderate Negative Micros Exam (test code=MEXAM) Indicated Epithelial Cells (test code=EPI) 20-29 /LPF 0-30 WBC, Urine (test code=UWBC) 5-10 /HPF 0-5 RBC, Urine (test code=URBC) 0-2 /HPF 0-5 Bacteria (test code=BACT) Moderate /HPF CBC with [id number] 20:58:00* Test Item Value Reference Range Comments WBC (test code=WBC) 11.7 K/cumm 4.4-10.5 RBC (test code=RBC) 3.17 M/cumm 3.75-5.20 Hemoglobin (test code=HGB) 9.4 gm/dL 12.2-14.8 Hematocrit (test code=HCT) 29.1 % 36.5-44.4 MCV (test code=MCV) 91.8 fL 80-100 MCH (test code=MCH) 29.5 pg 27.0-32.5 MCHC (test code=MCHC) 32.2 g/dL 32.0-37.5 RDW (test code=RDW) 15.1 % 11.5-14.5 Platelet Count (test code=PLTCT) 236 K/cumm 140-440 MPV (test code=MPV) 9.8 fL Diff Method (test code=DIFFM) Auto Neutrophil (test code=NEUT) 73.6 % 36-70 Lymphocyte (test code=LYMPH) 20.0 % 12-44 Monocyte (test code=MONO) 3.9 % 0-11 Eosinophil (test code=EOS) 2.2 % 0-7 Basophil (test code=BASO) 0.4 % 0-2 Neutro Abs (test code=ANEUT) 8.6 K/cumm 1.6-7.4 Lymph Abs (test code=ALYMPH) 2.3 K/cumm 0.5-4.6 [place]illion Abs (test code=AMONO) 0.5 K/cumm 0.0-1.2 Eos Abs (test code=AEOS) 0.25 K/cumm 0.00-0.74 Baso Abs (test code=ABASO) 0.0 K/cumm 0.00-0.21 Hypochromic (test code=HYPO) Slight SHOULDER LEFT 1 VIEW [place] [address] Patient Name: ANTHONY GREGORY MR #: [id number] : 1935 Age/Sex: 82/F Req #: [id number] Adm Physician: Ordered by: ROBIN CORDOBA MD Report #: [id number] Location: ER Room/Bed: Procedure: DX/SHOULDER LEFT 1 VIEW Exam Date: Exam Time: REPORT STATUS: Signed PROCEDURE: X-RAY LEFT SHOULDER, LIMITED COMPARISON: None. IN DICATIONS: 2ND ATTEMPT POST REDUCTION LEFT SHOULDER FINDINGS: See c onclusion. CONCLUSION: 1. Persistent subcoracoid location of the left humeral head consistent with glenohumeral dislocation, with unchanged Hill-S achs fracture.. Micky Gibson M.D. Dictated by: Micky prater M.D. on 11/04/2017 at 17:12 Electronically approved by: Micky estrada M.D. on 11/04/2017 at 17:12 Dictated By: MICKY Aguilera 11 Transcribed By: JESSE on 11/04/171711 COPY TO: ROBIN CORDOBA MD SHOULDER LEFT 1 VIEW [place] [address] Patient Name: ANTHONY GREGORY MR #: [id number] : 1935 Age/Sex: 82/F Req #: [id number] [facility] Physician: Ordered by: ROBIN CORDOBA MD Report #: [id number] Location: ER Room/Bed: Procedure: DX/SHOULDER LEFT 1 VIEW Exam Date: 11/04/17 Exam Time: [address] ATUS: Signed PROCEDURE: X-RAY LEFT SHOULDER, LIMITED COMPARISON: No ne. INDICATIONS: POST REDUCTION LEFT SHOULDER DISLOCATION FINDINGS : See conclusion. CONCLUSION: 1. Persistent left glenohumeral dislocation and Hill-Sachs fracture. Micky Gibson M.D. Dictated by: Micky Gibson M.D. on 11/04/2017 at 16:40 Electronically appro mele by: Micky Gibson M.D. on 11/04/2017 at 16:40 Dictate d By: MICKY GIBSON MD 1640 Transcribed By: JESSE on 11/04/17 1640 COPY TO: ROBIN CORDOBA MD SHOULDER LEFT COMPLETE [place] [address] Patient Name: ANTHONY GREGORY MR #: [id number] : 1935 Age/Sex: 82/F Req #: [id number] Adm Physician: Ordered by: ROBIN CORDOBA MD Report #: [id number] Location: ER Room/Bed: Procedure: [id number] DX/SHOULDER LEFT COMPLE TE Exam Date: 11/04/17 Exam Time: 1400 REPORT STATUS: Signed PROCEDURE: X-RAY LEFT SHOULDER, COMPLETE COMPARISON: [facility], DX, SHOULDER LEFT COMPLETE, 11/04/2017, 13:32. INDICATIONS: POST REDUCTION OF LEFT SHOULDER FINDINGS: See conclus ion. CONCLUSION: Persistent subcoracoid location of the left humer al head, consistent with anterior glenohumeral dislocation. Multiple bone f ragments again project lateral to the humeral head, consistent with Hill-Sach s fracture Micky Gibson M.D. Dictated by: Toña Miranda on 11/04/2017 at 14:28 Electronically approved by: Micky Gibson M.D. on 11/04/2017 at 14:28 Dictated By: MICKY GIBSON MD El ectronically Signed By: MICKY GIBSON MD on 11/04/171427 Transcribed By: [facility] Navin on 11/04/171427 COPY TO: ROBIN CORDOBA MD HUMERUS LEFT 2+VIEWS [place] [address] Patient Name: ANTHONY GREGORY MR #: [id number] : 1935 Age/Sex: 82/F Req #: [id number] Adm Phy sician: Ordered by: ROBIN CORDOBA MD Report #: [id number] [facility]: [facility]/Bed: Procedure: [id number] DX/HUMERUS LEFT 2+VIEWS Exam Date: 11/04/17 Exam Time: [address] ATUS: Signed PROCEDURE: X-RAY LEFT HUMERUS, TWO OR MORE VIEWS COMPARI SON: None. INDICATIONS: POST REDUCTION OF LEFT SHOULDER FINDINGS : See conclusion. CONCLUSION: No significant interval change in the subcoracoid location of the left humeral head consistent with glenohum eral dislocation. Bone fragments projecting lateral to the humeral neck consis tent with Hill-Sachs fracture. Other bony structures are intact. Tr Gibson M.D. Dictated by: Micky Gibson M.D. on 11/04/2017 at 1 4:29 Electronically approved by: Micky Gibson M.D. on 11/04/2017 at 14:29 Dictated By: MICKY GIBSON MD 1429 Transcribed By: JESSE on 11/04/17 1429 COPY TO: ROBIN CORDOBA MD SHOULDER LEFT COMPLETE [place] [address] Patient Name: ANTHONY GREGORY MR #: [id number] : 1935 Age/Sex: 82/F Req #: [id number] Adm Physician: Ordered by: ROBIN CORDOBA MD Report #: [id number] Location: ER Room/Bed: Procedure: [id number] DX/SHOULDER LEFT COMPLE TE Exam Date: 11/04/17 Exam Time: 1310 REPORT STATUS: Signed PROCEDURE: SHOULDER LEFT COMPLETE TECHNIQUE: Portable AP left shoulder internal and external rotation. INDICATION: Left shoulder pain status post fall COMPARISON: None. FINDINGS: See conclusion. CONCLUSION: Anterior dislocation with suspected Hill-Sachs fracture. Frac ture fragments at the posterolateral margin of the glenoid. Dictated b y: Rico Alvarez M.D. on 11/04/2017 at 13:41 Electronically approve d by: Rico Alvarez M.D. on 11/04/2017 at 13:41 Dictated By: RICO ALVAREZ MD 1341 Transcribed By: JESSE on 11/04/17 1341 COPY TO: ROBIN CORDOBA MD
--- OUTSIDE RECORDS SUMMARY | 2018-12-12 08:19 | XMS REPORT ---
Author Joey Mora [facility] eClinical[employer] Address Unknown Phone Unavailable Care Team Providers Care Liquor Grinding Mill Operator Name Role Phone Joey Birch CP Unavailable Allergies No Known Allergies Problems Problem Type Condition Code Onset Dates Condition Status Problem Long-term use of high-risk medication Z79.899 Active Problem Polyarthritis M13.0 Active Problem Rheumatoid arthritis M06.9 Active Medications No Known Medications Results No Known Results Summary Purpose eClinicalWorks Submission
[2018-12-12 13:20] VITALS: BP 127/72
--- NOTE | 2018-12-12 17:33 | Operative Report ---
DATE OF PROCEDURE: 12/12/2018 SURGEON: Calvin Orellana MD CAR HEAD LINER INSTALLER: Edis Smiley PA-C. PREOPERATIVE DIAGNOSIS: Left carpal tunnel syndrome. POSTOPERATIVE DIAGNOSIS: Left carpal tunnel syndrome. PROCEDURE: Left endoscopic carpal tunnel release. INDICATIONS: The patient is an 83-year-old lady, who has clinic signs and symptoms consistent with carpal tunnel syndrome on the left side. She would like to proceed with definitive surgical intervention. The risks and benefits of the procedure have been discussed. She states she understands and wishes to proceed. PROCEDURE IN DETAIL: The patient was brought to the operating room and given IV sedation. The left wrist and carpal tunnel were infiltrated with approximately 5 mL of 2% lidocaine without epinephrine. The left upper extremity was then prepped and draped in a sterile manner. A preoperative time-out was performed. The extremity was exsanguinated and a proximal tourniquet was briefly inflated to 250 mmHg. An incision was made over the volar aspect of the left wrist. The palmaris longus was retracted to the radial side of the wound. The flexor retinaculum was elevated and incised with a pair of tenotomy scissors. An elevator was used to tease the tenosynovium off the undersurface of the transverse carpal ligament. Dilators were placed and the hook of the hamate was palpated. The [employer] endoscope was then placed in the carpal tunnel. The undersurface of the transverse carpal ligament was clearly visualized without evidence of soft tissue interposition. The knife was deployed and the ligament was cut from distal to proximal. A full-thickness cut was noted with palmar fat extruding into the visibility of the wound. The incision was then closed with two interrupted nylon stitches. A sterile bandage was applied. She was transported to the recovery room in stable condition. There was no blood loss and all needle and sponge counts were correct. Calvin Orellana MD DR/MODL /[id number]
== END | disposition home or self-care (01) ==
LOC: OR 08:10
PROVIDERS: ATTEND Specialist
DX: G56.02 Carpal tunnel syndrome, left upper limb (principal); M19.90 Unspecified osteoarthritis, unspecified site; J44.9 Chronic obstructive pulmonary disease, unspecified; I11.0 Hypertensive heart disease with heart failure; I50.30 Unspecified diastolic (congestive) heart failure; E66.01 Morbid (severe) obesity due to excess calories; Z01.810 Encounter for preprocedural cardiovascular examination; Z01.812 Encounter for preprocedural laboratory examination; Z01.818 Encounter for other preprocedural examination; Z68.41 Body mass index [BMI] 40.0-44.9, adult; Z85.42 Personal history of malignant neoplasm of other parts of uterus; Z87.891 Personal history of nicotine dependence
CPT/HCPCS: 29848; 36415; 71046; 80048; 85025; 93005; J0690; J2001; J2405; J2704